=== PATIENT | female | born 1975 ===

== ENCOUNTER 2024-09-19 08:25 | Day surgery (SDC) | payer OTHER ==
--- NOTE | 2024-09-19 07:50 | HP ---
HISTORY OF PRESENT ILLNESS: A 49-year-old, 1-1/2 months ago or so had upper abdominal pain followed by vagal episode. CT scan, cholelithiasis. PAST MEDICAL HISTORY: Hypothyroidism, hypertension. PAST SURGICAL HISTORY: She had a tubal in the past. FAMILY HISTORY: Diabetes, bladder cancer, COPD, heart disease. SOCIAL HISTORY: No smoking or alcohol abuse. MEDICATIONS: Hydrochlorothiazide, Synthroid. ALLERGIES: Compazine. REVIEW OF SYSTEMS: Twelve systems reviewed. No chest pain or palpitations. Other systems negative or noncontributory as above and per preadmission questionnaire. PHYSICAL EXAMINATION: GENERAL: Height 5 feet 4 inches. BMI 39.48. No acute distress. HEENT: Sclerae nonicteric. NECK: No JVD. CHEST: Equal excursion, nonlabored breathing. CARDIOVASCULAR: Regular rate and rhythm. ABDOMEN: Soft. EXTREMITIES: No cyanosis or edema. NEUROLOGIC: Alert and oriented, moving all extremities symmetrically. PSYCHIATRIC: Appropriate mood and affect. SKIN: Dry. IMPRESSION: Acute exacerbation of chronic cholecystitis, symptomatic cholelithiasis. Recommend cholecystectomy. The risks and benefits explained in detail and include bleeding and infection; risk of bowel injury or perforation; risk of missed or nondiagnosis, or incomplete exam; possible need for ERCP; risk of anesthesia, DVT; risk of aches and pains, bloating, constipation, and/or loose stools possibly chronic in nature; possibility of no improvement of preop symptoms possibly requiring further workup, studies, endoscopy, or other referrals. We will proceed with laparoscopic cholecystectomy, possible open as an outpatient under general anesthetic. Otherwise, continue medications for her hypertension and hypothyroidism.
[2024-09-19 08:36] LABS: HCG URINE TEST NEGATIVE (NEGATIVE)
[2024-09-19] MEDS ORDERED: MEFOXIN 2 GM PREMIX** 2 GM/50 ML ML IV ONE (08:41)
[2024-09-19] MEDS ORDERED: Lactated Ringers 1,000 ML IV ONE ×2 (08:41→10:28)
[2024-09-19] MEDS: MEFOXIN 2 GM PREMIX** 2 GM/50 ML ML IV SCH (08:47)
[2024-09-19] MEDS: Lactated Ringers 1,000 ML IV SCH (08:47)
[2024-09-19 08:53] VITALS: RESP 16
[2024-09-19] MEDS: Transderm Scop 1.5MG Patch TOP PRN (09:21)
[2024-09-19] MEDS: Pepcid 20 MG VIAL IV ONE (09:21)
[2024-09-19] MEDS: Reglan 10 MG/2 ML IV ONE (09:21)
[2024-09-19] MEDS ORDERED: Sensorcaine 0.25% 10 ML ONE (10:28)
[2024-09-19] MEDS ORDERED: DIPRIVAN 200 MG/20 ML IV ONE (11:27)
[2024-09-19] MEDS ORDERED: Decadron 4 MG INJ ONE (11:34)
[2024-09-19] MEDS ORDERED: ROCURONIUM BROMIDE IV ONE (11:34)
[2024-09-19] MEDS ORDERED: Zofran 4 MG/2 ML VIAL ONE ×2 (11:34→12:56)
[2024-09-19] MEDS ORDERED: OFIRMEV 100 ML IV ONE (11:35)
[2024-09-19] MEDS ORDERED: Sodium Chloride 0.9% 1000 ML 1,000 ML ONE (11:40)
[2024-09-19] MEDS ORDERED: SUBLIMAZE 100 MCG/2 ML ONE (12:04)
[2024-09-19] MEDS ORDERED: BRIDION 200MG/2ML IV ONE (12:05)
[2024-09-19] MEDS ORDERED: TORAdol 30 mg Injection ONE (12:05)
[2024-09-19 13:23] VITALS: O2SAT 99
[2024-09-19 13:39] VITALS: TEMP 97.8
[2024-09-19 13:45] VITALS: BP 132/84; PULSE 58
--- NOTE | 2024-09-21 09:16 | OP ---
SURGERY DATE/TIME: 09/19/2024 [id number] PREOPERATIVE DIAGNOSES: 1) Request from java mobile developer for photos of uterus, ovary, tubes. 2) Acute exacerbation of chronic cholecystitis, symptomatic cholelithiasis. POSTOPERATIVE DIAGNOSES: 1) Request from java mobile developer for photos of uterus, ovary, tubes. 2) Acute exacerbation of chronic cholecystitis, symptomatic cholelithiasis. PROCEDURES: 1) Diagnostic laparoscopy. 2) Laparoscopic cholecystectomy. SURGEON: Paolo Solis MD. ANESTHESIA: General. ESTIMATED BLOOD LOSS: Minimal. INDICATIONS: As noted above. Risks and benefits explained in detail, not limited to. Consent obtained. DESCRIPTION OF PROCEDURE AND FINDINGS: The patient was taken to the operating room where general anesthesia was induced. The abdomen was prepped and draped in the usual sterile fashion after official time-out for planned procedure. Transverse incision made supraumbilically. Fascia grasped and pulled upward. Veress needle inserted. Tested with saline. Pneumoperitoneum accomplished opening a pressure of 0 to 15. A 5 mm right upper quadrant bladeless port and camera inserted without difficulty followed by two 5 mm right upper quadrant ports and 11 mm epigastric port. The gallbladder was a little bit intrahepatic, it had some chronic inflammation, dissected posterolateral to anterior fashion slowly and carefully. The main cystic artery isolated and cystic duct were isolated until the critical view was seen anterior and posterior. Once this was accomplished, cystic duct and cystic artery clipped x3 and divided in usual fashion. Gallbladder was slowly and carefully dissected free. It was quite vascular, required clipping and additional oozing tied branches off the cystic artery and cystic vein as necessary directly along the gallbladder wall slowly and carefully staying directly on the gallbladder wall was carefully dissected free from the its dense attachment to the liver bed and staying directly along the gallbladder wall. Just prior to releasing it from its final attachments, one of the graspers tore a little small hole and spilling a small amount of bile. There was no visible stone spillage. The gallbladder was decompressed. Copious irrigation irrigated clear and continued dissecting directly along the gallbladder wall. Just prior to releasing it from its final attachment to the anterior edge of the liver, liver bed reinspected. Clips noted to be in place in the cystic duct/cystic artery stumps. No signs of any active bleeding or bile leakage. At this point, it was felt there was no benefit to drain placement. The gallbladder was then released and placed in a bag, and pulled up and out the epigastric wound. The epigastric 11 mm fascial defect closed with puncture closure device and #1 Vicryl. Copious amount of irrigation accomplished lateral to the liver and subhepatic space. There was a little capsule ooze that was controlled with some pinpoint cautery. Good hemostasis was noted. Clips were noted to be in place on cystic duct/cystic artery stumps. No signs of any bleeding or bile leakage. It was felt there was no benefit to drain placement. Pneumoperitoneum decompressed. Wounds irrigated out. Skin incision closed with 4-0 Vicryl. Steri-Strips, sterile dressing applied. The patient tolerated the procedure well. There were no immediate complications. Findings discussed with family out in the waiting area.
== END 2024-09-19 13:45 | disposition home or self-care (01) ==
LOC: SDC 08:25
PROVIDERS: ATTEND Surgery
DX: K80.10 Calculus of gallbladder with chronic cholecystitis without obstruction (principal); R10.9 Unspecified abdominal pain
CPT/HCPCS: 81025; J0694; J1100; J1885; J2405; J2704; J3010; A9270-GY